=== PATIENT | female | born 2000 | race Hispanic/Latino ===

== ENCOUNTER 2021-11-26 10:14 | Emergency (ER) | payer SELFPAY ==
[~2021-11-26] VITALS: Ht 165.1 cm; Wt 63.0 kg
== END 2021-11-26 11:30 | disposition home or self-care (01) ==
LOC: ER 10:23
DX: R50.9 Fever, unspecified (principal); J02.9 Acute pharyngitis, unspecified
CPT/HCPCS: 83518; 87070; 99282